=== PATIENT | female | born 1940 | race Caucasian/White ===

== ENCOUNTER 2017-08-31 09:22 | Emergency (ER) | payer MEDICARE, OTHER ==
[~2017-08-31] VITALS: Ht 152.4 cm; Wt 49.9 kg
[~2017-08-31 09:22] MED LIST: ACYCLOVIR400 MG ORAL; CELEXA20 MG ORAL; CYCLOBENZAPRINE10 MG ORAL; KLONOPIN1 MG ORAL; LIDOCAINE700 M1 TP; LIPITOR80 MG ORAL; NORCO 5-325 TA1 EAC1 ORAL; NORCO 5-325 TA1 EACH ORAL; PREMARIN0.45 MG ORAL
[2017-08-31] MEDS ORDERED: Tetanus/Diptheria/Pertussis Vaccine 0.5ml Syr IM ONE (09:45)
[2017-08-31] MEDS ORDERED: Norco 5mg/325mg tab ORAL ONE (09:45)
[2017-08-31] MEDS ORDERED: Lidocaine 1% 10mg/ml/Epi 0.005mg/ml 30ml vial INJ ONE (09:45)
--- NOTE | 2017-08-31 09:55 | Emergency Room Report ---
History of Present Illness General Chief Complaint: Multiple Trauma/Fall Source: Patient Present Illness HPI 77-year-old female with history of fibromyalgia and hypertension presents with 2 falls today, she reports she is in her usual state of health, but then she rolled out of bed last night falling onto her left wrist. She did not think much of it as she did have some slight abrasions but did not have much pain. Later today she was walking and tripped on a curb and hit her head on the ground , sustaining a cut, she also sustained an abrasion on her right elbow and right knee. She reports no loss of consciousness, she also denies neck pain, and she is actually reporting she is able to move everything without difficulty and the only thing concerning is her head. She is not sure of her last tetanus shot. She reports she has been in her usual state of health otherwise, and was not feeling dizzy, denies any numbness, tingling, weakness, chest pain, shortness breath, recent illness Allergies: Coded Allergies: No Known Allergies (Unverified , 06/14/17) Patient History Past Medical History: see triage record Reviewed Nursing Documentation: PMH: Agreed; PSxH: Agreed Nursing Documentation-PMH Hx Hypertension: Yes Review of Systems All Other Systems: negative except mentioned in HPI Physical Exam Vital Signs Date Time Temp Pulse Resp B/P (MAP) Pulse Ox O2 Delivery O2 Flow Rate FiO2 08/31/17 09:19 98.0 88 19 162/96 92 Room Air 98.1 Sp02 EP Interpretation: reviewed, normal General Appearance: well appearing, no apparent distress, alert, non-toxic Head: normocephalic, other - L-shaped 3cm x 4cm laceration to superior aspect of R temporal area of scalp, no active bleeding or contamination Eyes: bilateral eye normal inspection, bilateral eye PERRL, bilateral eye EOMI ENT: normal ENT inspection, hearing grossly normal, normal pharynx, no angioedema, normal voice, moist mucus membranes Neck: normal inspection, full range of motion, supple, thyroid normal, no meningismus, no bony tend, supple/symm/no masses Respiratory: chest non-tender, lungs clear, normal breath sounds, chest symmetrical, palpation of chest normal Cardiovascular #1: normal peripheral pulses, regular rate, rhythm Cardiovascular #2: 2+ radial (R), 2+ radial (L) Gastrointestinal: normal inspection, non tender, soft, no mass, no guarding, no rebound Rectal: deferred Genitourinary: normal inspection, no CVA tenderness Musculoskeletal: back normal, gait/station normal, normal range of motion, non- tender, no calf tenderness, Kelvin's Sign negative Neurologic: alert, responsive, civil preparedness coordinator III-XII nml as tested, motor strength/tone normal, sensory intact, speech normal Psychiatric: judgement/insight normal, memory normal, mood/affect normal, no suicidal/homicidal ideation Skin: normal color, no rash, warm/dry, normal turgor, abrasions - L lateral wrist with 2 linear skin tears, ~2cm length each; R elbow 1cm abrasion, R knee 2cm abrasion Lymphatic: no adenopathy Procedures Laceration/Wound Repair Laceration/Wound Repair : Consent: Verbal Wound Location: head Wound's Depth, Shape: flap Wound Explored: clean Irrigated w/ Saline (ccs): 100 Betadine Prep?: No Anesthesia: Lidocaine w/ Epi Volume Anesthetic (ccs): 5 Wound Debrided: minimal Wound Repaired With: sutures Suture Size/Type: 3:0 Number of Sutures: 6 Layer Closure?: No Deep Layer Suture Size/Type: 3:0, other - nylon Sterile Dressing Applied?: No Splint Applied?: No Patient Tolerated: Well Complications: None Progress EBL 2cc Medical Decision Making Diagnostic Impression: Primary Impression: Multiple injuries due to trauma Additional Impression: Scalp laceration ER Course Patient with mechanical falls, but normal neurologic examination, CT head unremarkable, cervical spine cleared using clinical judgment as patient has no neck pain, no neck tenderness, from neck without pain, and a normal neurologic examination; she was given a tetanus shot, scalp laceration repaired after wound irrigation using saline, and instructed to follow-up with PMD in 2-3 days. EKG Diagnostic Results EKG Time: 10:05 EP Interpretation: no st-t changes, no twi's, no [id number] Rate: normal Rhythm: NSR ST Segments: no acute changes ASA given to the pt in ED: No Rhythm Strip Diag. Results Rhythm Strip Time: 09:55 EP Interpretation: yes Rate: 80 Rhythm: NSR, no PVC's, no ectopy CT/MRI/US Diagnostic Results CT/MRI/US Diagnostic Results : Imaging Test Ordered: ct head noncontrast Impression no acute abnormalities Last Vital Signs Date Time Temp Pulse Resp B/P (MAP) Pulse Ox O2 Delivery O2 Flow Rate FiO2 08/31/17 09:19 98.0 88 19 162/96 92 Room Air 98.1 Disposition: HOME, SELF-CARE Condition: Stable RENE SAHA M.D Aug 31, 2017 09:55
[2017-08-31 09:57] LABS: ANION GAP 5 mmol/L (5-15); BLOOD UREA NITROGEN 21 mg/dL (7-18); CALCIUM 9.6 MG/DL (8.5-10.1); CARBON DIOXIDE 31 MMOL/L (21-32); CHLORIDE 100 MMOL/L (98-107); CREATININE 1.3 MG/DL (0.55-1.30); POTASSIUM 4.8 MMOL/L (3.5-5.1); SODIUM 136 MMOL/L (136-145)
[2017-08-31 10:02] LABS: ALANINE AMINOTRANSFERASE 20 U/L (12-78); ALBUMIN 3.4 G/DL (3.4-5.0); ALBUMIN/GLOBULIN RATIO 0.8 (1.0-2.7); ALKALINE PHOSPHATASE 81 U/L (46-116); ASPARTATE AMINO TRANSFERASE 15 U/L (15-37); BASOPHILS % (AUTO) 0.7 % (0.0-2.0); BILIRUBIN,TOTAL 0.2 MG/DL (0.2-1.0); HEMATOCRIT 47.2 % (37.0-47.0); HEMOGLOBIN 15.3 G/DL (12.0-16.0); LYMPHOCYTES % (AUTO) 24.6 % (20.0-45.0); MEAN CORPUSCULAR VOLUME 96 FL (80-99); MONOCYTES % (AUTO) 7.4 % (1.0-10.0); NEUTROPHILS % (AUTO) 66.4 % (45.0-75.0); PLATELET COUNT 271 K/UL (150-450); RED CELL DISTRIBUTION WIDTH 11.9 % (11.6-14.8); WHITE BLOOD COUNT 12.3 K/UL (4.8-10.8)
[2017-08-31] MEDS ORDERED: CARDIZEM30 M1 PO (10:05)
--- NOTE | 2017-08-31 10:43 | Diagnostic Imaging Report ---
Indications: Pain, status post fall Technique: Spiral acquisitions obtained through the brain. Angled axial and coronal 5 x 5 mm slices were reconstructed. Total dose length product 1452.59 mGycm. CTDI vol(s) 70.38 mGy. Dose reduction achieved using automated exposure control Comparison: None. Findings: There is mild age-related enlargement of the ventricles and extra axial CSF spaces. No acute intracranial hemorrhage or edema, mass effect, nor midline shift. Normal dalal-white differentiation. Intact calvarium. There is evidence of prior bilateral cataract surgery. The orbits are otherwise unremarkable. The sinuses are clear. The mastoids are clear. There is evidence of empty sella Impression: Mild age-related volume loss Negative for acute intracranial bleed or mass effect Empty sella incidentally noted The CT scanner at [facility] is accredited by the [employer] and the scans are performed using protocols designed to limit radiation exposure to as low as reasonably achievable to attain images of sufficient resolution adequate for diagnostic evaluation.
[2017-08-31] MEDS ORDERED: Bacitracin Oint UD TOPIC ONE (11:00)
[2017-08-31 11:25] VITALS: BP 162/96
== END 2017-08-31 11:35 | disposition home or self-care (01) ==
LOC: EDBD 09:22 → EMR 10:03
DX: S01.01XA Laceration without foreign body of scalp, initial encounter (principal); S80.211A Abrasion, right knee, initial encounter; S60.812A Abrasion of left wrist, initial encounter; S50.311A Abrasion of right elbow, initial encounter; W06.XXXA Fall from bed, initial encounter; Y92.009 Unspecified place in unspecified non-institutional (private) residence as the place of occurrence of the external cause; Z23 Encounter for immunization; I10 Essential (primary) hypertension
CPT/HCPCS: 36415; 70450; 80053; 85025; 90471; 90715; 99284

== ENCOUNTER 2017-09-03 09:35 | Emergency (ER) | payer MEDICARE, OTHER ==
[~2017-09-03] VITALS: Ht 152.4 cm; Wt 50.8 kg
[~2017-09-03 09:35] MED LIST changes: +CARDIZEM30 M1 PO
[2017-09-03] MEDS ORDERED: Albuterol/Ipratropium 3ml neb HHN ONE (10:15)
--- NOTE | 2017-09-03 10:23 | Emergency Room Report ---
History of Present Illness General Chief Complaint: Pain Source: Patient Present Illness HPI Patient is a 77-year-old female who presented after a fall. The patient reported having fallen onto her chest wall. She reports having increased pain with movement and respirations. The patient had recent been seen by but did not mention any of the injuries that time. The injury occurred approximately 2 days prior to arrival. Patient denies any fever.She denies any productive cough. She denied any worsening headache. Allergies: Coded Allergies: No Known Allergies (Unverified , 06/14/17) Patient History Reviewed Nursing Documentation: PMH: Agreed; PSxH: Agreed Nursing Documentation-PMH Hx Hypertension: Yes Review of Systems All Other Systems: negative except mentioned in HPI Physical Exam Vital Signs Date Time Temp Pulse Resp B/P (MAP) Pulse Ox O2 Delivery O2 Flow Rate FiO2 09/03/17 09:42 97.8 80 18 135/73 91 Room Air 97.9 General Appearance: well appearing, no apparent distress, alert, GCS 15, non- toxic, Chronically Ill Head: normocephalic, atraumatic ENT: hearing grossly normal, normal voice Neck: full range of motion, supple Respiratory: no respiratory distress, speaking full sentences, wheezing Cardiovascular #1: normal peripheral pulses, regular rate, rhythm, no edema Musculoskeletal: normal inspection, back normal, digits/nails normal, no calf tenderness Neurologic: normal gait Psychiatric: mood/affect normal Skin: other - healing scalp wound, no infection, left chest wall bruising without crepitance Medical Decision Making Diagnostic Impression: Primary Impression: Fracture, rib Additional Impression: Contusion, chest wall ER Course Patient presented for traumatic left chest wall pain. The differential diagnosis included was not limited to contusion, fracture, pneumothorax, hemothorax, shingles among others.Because of complexity of patient's case imaging studies were ordered. Patient scalp laceration appears to be healing well. The CT of the chest noncontrast was ordered to evaluate for possible fracture or pneumothorax.CT chest read by radiology showed the rib fracture of the left lateral ninth rib and possibly the left seventh rib. Patient is also noted to have lung nodules. The patient was advised of the CT findings and advised that she would need follow-up CT in 6-12 months.Patient was given prescription for pain medications. The patient is advised to follow up with primary care doctor in 1-2 days. Patient is advised to return if any worsening condition or if any changes in status that are concerning. This report is dictated with [employer] tsa screener software which may occasionally lead to discrepancies related to use of this software. Last Vital Signs Date Time Temp Pulse Resp B/P (MAP) Pulse Ox O2 Delivery O2 Flow Rate FiO2 09/03/17 09:42 97.8 80 18 135/73 91 Room Air 97.9 Status: improved Disposition: HOME, SELF-CARE Condition: Stable Scripts Oxycodone/Acetaminophen 5-325* (PERCOCET 5-325 MG TABLET*) 1 Each Tablet 1 TAB ORAL Q4H PRN for For Pain, #15 TAB 0 Refills Prov: Roel Hale MD 09/03/17 Lidocaine (Lidocaine) 1 Each Adh..patch 700 MG TP DAILY, #30 PATCH Prov: Roel Hale MD 09/03/17 Referrals: NON PHYSICIAN (PCP) Roel Hale MD Sep 03, 2017 10:23
[2017-09-03] MEDS ORDERED: LIDOCAINE700 M1 TP (10:42)
[2017-09-03] MEDS ORDERED: PERCOCET 5-3251 EACH ORAL (10:58)
--- NOTE | 2017-09-03 11:14 | Diagnostic Imaging Report ---
Clinical Indication: Chest pain, status post fall Technique: Spiral acquisitions obtained through the chest. No IV contrast utilized, referring physician request. Multiplanar reconstructions generated. Total dose length product 515.22 mGycm. CTDIvol(s) 12.92 mGy. Dose reduction achieved using automated exposure control Comparison: none Findings: There is a nondisplaced fracture of the lateral ninth rib. There is questionably a subtle nondisplaced fracture of the anterolateral left seventh rib. No pneumothorax or underlying parenchymal contusion demonstrated. No other fractures are demonstrated. Confluent opacities are seen at both lung apices. These appear to be associated with some volume loss and upward retraction of the pulmonary eleuterio. There is some calcification. The lungs are hyperinflated in general, and some small bullae are present in the bilateral upper lobes. A vague irregular 3 mm opacity is seen in the periphery of the left upper lobe, image 20 of series 5. An irregular opacity is seen in the posterior medial superior segment right upper lobe, image 23 series 5. Pleural opacity is seen along the minor fissure anteriorly on the right, image 23 series 5. Some irregular scarring is seen in the periphery of the right lower lobe. No acute infiltrates. No effusions. No definite masses The heart size is normal. No pericardial effusion. No mediastinal or hilar mass or adenopathy. No axillary or chest wall mass or adenopathy. The included upper abdominal anatomy is unremarkable for a 2 cm indeterminate attenuation lesion coming off of the lower pole of the left kidney, as well as some subcentimeter slightly hyperdense lesions which are otherwise too small to characterize. Impression: Positive for left lateral ninth rib fracture and very questionable subtle anterolateral left seventh rib fracture. No underlying parenchymal contusion or pneumothorax demonstrated Confluent opacities at both lung apices, with evidence of volume loss, upward retraction of the pulmonary eleuterio, and areas of calcification. These most likely represent areas of confluent fibrosis and scarring. Underlying mass lesion not completely excludable. Evidence of COPD and other postinflammatory changes, as described Scattered pulmonary nodular opacities, as described. Most likely postinflammatory changes, but follow-up CT at 6-12 months is recommended 2 cm indeterminate attenuation lesion coming off of the lower pole of left kidney incidentally noted. Solid mass a possibility. Recommend further evaluation with ultrasound Findings discussed by phone with Dr. Hale in the emergency room at the time of interpretation The CT scanner at [facility] is accredited by the [employer] and the scans are performed using protocols designed to limit radiation exposure to as low as reasonably achievable to attain images of sufficient resolution adequate for diagnostic evaluation.
[2017-09-03] MEDS ORDERED: oxyCODONE HCL/Acetaminophen 5/325mg ORAL ONE (11:15)
[2017-09-03 11:22] VITALS: BP 142/82
== END 2017-09-03 11:22 | disposition home or self-care (01) ==
LOC: EMR 10:17
DX: S22.32XA Fracture of one rib, left side, initial encounter for closed fracture (principal); S20.212A Contusion of left front wall of thorax, initial encounter; W19.XXXA Unspecified fall, initial encounter; Y92.9 Unspecified place or not applicable; I10 Essential (primary) hypertension
CPT/HCPCS: 71250; 94640; 94664; 99284; J7620

== ENCOUNTER 2017-09-06 09:15 | Emergency (ER) | payer MEDICARE, OTHER ==
[~2017-09-06] VITALS: Ht 152.4 cm; Wt 51.3 kg
[~2017-09-06 09:15] MED LIST changes: +PERCOCET 5-3251 EACH ORAL
[2017-09-06 09:35] VITALS: BP 130/83
--- NOTE | 2017-09-06 09:59 | Emergency Room Report ---
History of Present Illness General Chief Complaint: Medication Refill Source: Patient, Medical Record Present Illness HPI Patient fell on August 31. She sustained rib injuries. She's complaining about pain there. She is presented a second time for a prescription for Percocet. The patient has a history of fibromyalgia and takes Sebastian. She denies any fever , cough, chest pain other than the pleuritic pain from the injury. Also she sustained a laceration to her scalp. She is due to see her doctor on the out of this sutures removed. There is no problems with fever, rash or inflammation there. Allergies: Coded Allergies: No Known Allergies (Unverified , 06/14/17) Patient History Past Medical History: see triage record Social History: Reports: smoking Social History Narrative at home Reviewed Nursing Documentation: PMH: Agreed; PSxH: Agreed Nursing Documentation-PMH Past Medical History: No History, Except For Hx Hypertension: Yes Review of Systems All Other Systems: negative except mentioned in HPI Physical Exam Vital Signs Date Time Temp Pulse Resp B/P (MAP) Pulse Ox O2 Delivery O2 Flow Rate FiO2 09/06/17 09:18 97.9 98 18 130/83 98 Room Air 97.9 Sp02 EP Interpretation: reviewed, normal General Appearance: well appearing, no apparent distress Head: normocephalic, other - lac L forehead Eyes: bilateral eye normal inspection, bilateral eye PERRL ENT: hearing grossly normal, normal voice, moist mucus membranes Neck: full range of motion, supple Respiratory: no respiratory distress, speaking full sentences, other - chest wall tenderness Cardiovascular #1: normal peripheral pulses, regular rate, rhythm, no edema Cardiovascular #2: 2+ radial (L) Gastrointestinal: normal inspection Musculoskeletal: back normal, digits/nails normal, gait/station normal, normal range of motion Neurologic: alert, oriented x3, normal gait, grossly normal Psychiatric: mood/affect normal Skin: no rash, wd healing/no infection noted Medical Decision Making Diagnostic Impression: Primary Impression: Fracture, rib Qualified Codes: S22.32XD - Fracture of one rib, left side, subsequent encounter for fracture with routine healing Additional Impression: Forehead laceration Qualified Codes: S01.81XD - Laceration without foreign body of other part of head, subsequent encounter ER Course Patient requests Percocet for pain control from fractured ribs. Review of cures reveals no recent activity. She does state that she takes Sebastian chronically for fibromyalgia however this did not control her pain. She states she's not taking any anti-inflammatory medication at this time. She's fairly insistent on getting Percocet. She has a doctor's appointment on the . Xrays reviewed. Sutures and wound on forehead appear to be healing well. The patient is stable for outpatient observation and treatment. Last Vital Signs Date Time Temp Pulse Resp B/P (MAP) Pulse Ox O2 Delivery O2 Flow Rate FiO2 09/06/17 10:58 97.9 78 18 130/83 98 Room Air 97.9 Status: unchanged Disposition: HOME, SELF-CARE Condition: Stable Scripts Ibuprofen* (MOTRIN*) 400 Mg Tablet 400 MG ORAL Q6H, #14 TAB 0 Refills Prov: Boy Prince M.D. 09/06/17 Oxycodone/Acetaminophen 5-325* (PERCOCET 5-325 MG TABLET*) 1 Each Tablet 1 TAB ORAL Q6H PRN for For Pain, #12 TAB Prov: Boy Prince M.D. 09/06/17 Boy Prince M.D. Sep 06, 2017 09:59
[2017-09-06] MEDS ORDERED: PERCOCET 5-3251 EACH ORAL (10:04)
[2017-09-06] MEDS ORDERED: IBUPROFEN400 MG ORAL (10:04)
[2017-09-06 10:58] VITALS: BP 130/83
== END 2017-09-06 11:00 | disposition home or self-care (01) ==
LOC: EMR 10:04
DX: S22.32XD Fracture of one rib, left side, subsequent encounter for fracture with routine healing (principal); X58.XXXD Exposure to other specified factors, subsequent encounter; S01.81XD Laceration without foreign body of other part of head, subsequent encounter; I10 Essential (primary) hypertension; Z76.0 Encounter for issue of repeat prescription
CPT/HCPCS: 99283